=== PATIENT | male | born 1980 | race Caucasian/White ===

== ENCOUNTER 2025-03-06 16:10 | Emergency (ER) | payer MEDICAID ==
[~2025-03-06] VITALS: Ht 182.9 cm; Wt 82.0 kg
[2025-03-06 16:17] VITALS: O2SAT 96
[2025-03-06 17:30] VITALS: TEMP 37.4
[2025-03-06] MEDS: SODIUM CHLORIDE 0.9% 1,000 ML IV ONE (17:30)
[2025-03-06 17:46] LABS: BASOPHILS % 0.2 % (0.0-2.0); EOSINOPHILS % 0.0 % (0.0-5.0); HEMATOCRIT. 39.9 % (42.0-52.0); HEMOGLOBIN. 13.5 g/dL (14.0-18.0); LYMPHOCYTES % 9.2 % (20.0-50.0); MEAN PLATELET VOLUME 7.6 fl (7.4-10.4); MONOCYTES % 12.8 % (2.0-8.0); NEUTROPHILS % 77.8 % (40.0-76.0); PLATELET 229 x1000/uL (130-400); RED BLOOD CELL COUNT 4.31 mill/uL (4.7-6.1); RED CELL DISTRIBUTION WIDTH 13.2 % (11.6-14.6)
[2025-03-06 17:58] LABS: CREATININE 1.1 mg/dL (0.6-1.3)
[2025-03-06 17:59] LABS: ETHANOL BLOOD < 10 mg/dL (<10); UREA NITROGEN BLOOD 17 mg/dL (9-23)
[2025-03-06] MEDS: LORAZEPAM 2MG/ML UD SYRINGE IV SCH (18:02)
[2025-03-06 21:15] VITALS: BP 115/75; PULSE 95; RESP 25; O2SAT 95
== END 2025-03-06 21:26 | disposition home or self-care (01) ==
LOC: ER 16:10
DX: F15.10 Other stimulant abuse, uncomplicated (principal)
CPT/HCPCS: 80048; 80320; 85025; 36415; 96361; 96374; 99283; J2060; J7030; G0480

== ENCOUNTER 2025-03-09 09:49 | Emergency (ER) | payer MEDICAID ==
[~2025-03-09] VITALS: Ht 170.2 cm; Wt 82.0 kg
[2025-03-09 10:00] VITALS: O2SAT 96
[2025-03-09] MEDS: DIPHENHYDRAMINE 50MG CAPSULE PO ONE (10:45)
[2025-03-09] MEDS: ZIPRASIDONE HCL 40MG CAPSULE PO ONE (11:06)
[2025-03-09] MEDS: DIPHENHYDRAMINE 25MG CAPSULE PO SCH (11:06)
[2025-03-09] MEDS: LORAZEPAM 1MG TABLET PO ONE (11:06)
[2025-03-09 11:12] LABS: BASOPHILS % 0.5 % (0.0-2.0); EOSINOPHILS % 0.3 % (0.0-5.0); HEMATOCRIT. 39.5 % (42.0-52.0); HEMOGLOBIN. 13.4 g/dL (14.0-18.0); LYMPHOCYTES % 28.1 % (20.0-50.0); MEAN PLATELET VOLUME 7.8 fl (7.4-10.4); MONOCYTES % 11.6 % (2.0-8.0); NEUTROPHILS % 59.5 % (40.0-76.0); PLATELET 254 x1000/uL (130-400); RED BLOOD CELL COUNT 4.29 mill/uL (4.7-6.1); RED CELL DISTRIBUTION WIDTH 13.2 % (11.6-14.6)
[2025-03-09 11:17] LABS: CREATININE 1.0 mg/dL (0.6-1.3); UREA NITROGEN BLOOD 15 mg/dL (9-23)
[2025-03-09 11:18] LABS: ETHANOL BLOOD < 10 mg/dL (<10)
[2025-03-09 11:31] LABS: CLARITY URINE CLEAR (CLEAR); COLOR URINE DARK YELLOW (YELLOW); GLUCOSE URINE NEGATIVE (NEGATIVE); PH URINE 6.0 (4.5-8.0); PROTEIN URINE 1+ (NEGATIVE); SPECIFIC GRAVITY URINE 1.033 (1.005-1.030)
[2025-03-09 11:32] LABS: KETONES URINE TRACE (NEGATIVE); LEUKOCYTE ESTERASE URINE NEGATIVE (NEGATIVE); NITRITE URINE NEGATIVE (NEGATIVE); OCCULT BLOOD URINE NEGATIVE (NEGATIVE); UROBILINOGEN URINE 1.0 E.U./dL (0.2-1.0)
[2025-03-09 11:45] LABS: *AMPHETAMINES SCREEN URINE PRESUMPTIVE POSITIVE (NEGATIVE); *BARBITURATES SCREEN URINE NEGATIVE (NEGATIVE); *BENZODIAZEPINES SCREEN URINE NEGATIVE (NEGATIVE); *COCAINE SCREEN URINE NEGATIVE (NEGATIVE); CANNABINOID URINE SCREEN NEGATIVE (NEGATIVE); ECSTASY MDMA SCREEN URINE CONF.TEST INDICATED (NEGATIVE); METHADONE URINE SCREEN NEGATIVE (NEGATIVE); OPIATES URINE SCREEN NEGATIVE (NEGATIVE); PHENCYCLIDINE URINE SCREEN NEGATIVE (NEGATIVE)
[2025-03-09 11:54] LABS: MUCUS URINE 1+ /lpf (NONE/TRACE)
[2025-03-09 11:57] LABS: SQUAMOUS EPITHELIAL CELL URINE RARE /lpf (RARE/1+)
[2025-03-09 11:58] LABS: RBC URINE 0-2 /hpf (0-2); WBC URINE 0-2 /hpf (0-2)
[2025-03-09 11:59] LABS: BACTERIA URINE TRACE
[2025-03-09 12:06] VITALS: BP 140/78; PULSE 92; RESP 16; TEMP 36.7; O2SAT 96
== END 2025-03-09 12:30 | disposition home or self-care (01) ==
LOC: ER 09:49
DX: F24 Shared psychotic disorder (principal); F15.10 Other stimulant abuse, uncomplicated; Z79.899 Other long term (current) drug therapy
CPT/HCPCS: 80305; 80048; 81003; 80320; 85025; 36415; 99284; Q0163 ×2; G0480

== ENCOUNTER 2025-04-21 22:05 | Emergency (ER) | payer MEDICAID ==
[~2025-04-21] VITALS: Ht 162.6 cm; Wt 74.0 kg
[2025-04-21 22:06] VITALS: O2SAT 96
[2025-04-21] MEDS: HALOPERIDOL LACTATE 5MG/ML VIAL IM ONE (23:47)
[2025-04-21] MEDS: DIPHENHYDRAMINE 50MG/ML VIAL IM ONE (23:47)
[2025-04-21] MEDS: LORAZEPAM 2MG/ML UD SYRINGE IM NR (23:48)
[2025-04-22] MEDS: ZIPRASIDONE MESYLATE 20MG/VIAL IM ONE (00:23)
[2025-04-22 01:56] LABS: BASOPHILS % 0.2 % (0.0-2.0); EOSINOPHILS % 0.1 % (0.0-5.0); HEMATOCRIT. 43.0 % (42.0-52.0); HEMOGLOBIN. 14.7 g/dL (14.0-18.0); LYMPHOCYTES % 18.3 % (20.0-50.0); MEAN PLATELET VOLUME 8.5 fl (7.4-10.4); MONOCYTES % 6.5 % (2.0-8.0); NEUTROPHILS % 74.9 % (40.0-76.0); PLATELET 240 x1000/uL (130-400); RED BLOOD CELL COUNT 4.60 mill/uL (4.7-6.1); RED CELL DISTRIBUTION WIDTH 13.5 % (11.6-14.6)
[2025-04-22 02:20] LABS: CREATININE 1.1 mg/dL (0.6-1.3); UREA NITROGEN BLOOD 15 mg/dL (9-23)
[2025-04-22 02:21] LABS: ETHANOL BLOOD < 10 mg/dL (<10)
[2025-04-22 02:35] LABS: *AMPHETAMINES SCREEN URINE PRESUMPTIVE POSITIVE (NEGATIVE); *BARBITURATES SCREEN URINE NEGATIVE (NEGATIVE); *BENZODIAZEPINES SCREEN URINE NEGATIVE (NEGATIVE); *COCAINE SCREEN URINE NEGATIVE (NEGATIVE); CANNABINOID URINE SCREEN NEGATIVE (NEGATIVE); ECSTASY MDMA SCREEN URINE CONF.TEST INDICATED (NEGATIVE); METHADONE URINE SCREEN NEGATIVE (NEGATIVE); OPIATES URINE SCREEN NEGATIVE (NEGATIVE); PHENCYCLIDINE URINE SCREEN NEGATIVE (NEGATIVE)
[2025-04-22 12:48] VITALS: BP 122/85; PULSE 99; RESP 16; TEMP 36.8; O2SAT 100
== END 2025-04-22 12:49 | disposition home or self-care (01) ==
LOC: ER 22:05
DX: R44.1 Visual hallucinations (principal); F15.10 Other stimulant abuse, uncomplicated; Z79.899 Other long term (current) drug therapy; Z20.822 Contact with and (suspected) exposure to COVID-19
CPT/HCPCS: 80305; 80048; 80307; 80329; 80320; 85025; 36415; 93005; 96372 ×2; 99285; 87426; J1200; J1630; J2060; J3486; G0480